=== PATIENT | female | born 1940 | race Hispanic/Latino ===

== ENCOUNTER 2021-05-11 09:18 | Day surgery (SDC) | payer MEDICARE ==
[2021-05-11] MEDS ORDERED: ceFAZolin 2 GM/DEX 5% 100 ML BAG ONE (10:45)
[2021-05-11] MEDS ORDERED: Ketamine 50 MG/ML (10ML VIAL) ONE (11:41)
[2021-05-11] MEDS ORDERED: PROPOFOL 200 MG/20 ML VIAL ONE (12:01)
== END 2021-05-11 13:51 | disposition critical access hospital (66) ==
LOC: SDC 09:18
PROVIDERS: ATTEND Internal Medicine
PROC: 0DH63UZ Insertion of Feeding Device into Stomach, Percutaneous Approach (ICD-10-PCS; principal; 2021-05-11)
DX: R13.12 Dysphagia, oropharyngeal phase (principal); E46 Unspecified protein-calorie malnutrition; K44.9 Diaphragmatic hernia without obstruction or gangrene; E78.5 Hyperlipidemia, unspecified; I10 Essential (primary) hypertension; E11.9 Type 2 diabetes mellitus without complications; Z79.84 Long term (current) use of oral hypoglycemic drugs; Z79.899 Other long term (current) drug therapy; Z86.73 Personal history of transient ischemic attack (TIA), and cerebral infarction without residual deficits
CPT/HCPCS: 36416; J2704